=== PATIENT | male | born 1960 | race African-American/Black ===

== ENCOUNTER 2021-07-11 11:26 | Inpatient (IN) ==
[2021-07-11] MEDS ORDERED: AMIODARONE 450 MG/9 ML VIAL IV ONE (11:28)
[2021-07-11] MEDS ORDERED: AMIODARONE INJ 450 MG in DEXTROSE 5% 241 ML IV SCH (11:45)
[2021-07-11 12:11] LABS: Basophils % 0.6 % (0.0-0.8); Eosinophils # 0.1 10*3/uL (0.0-0.87); Eosinophils % 1.9 % (0.00-10.9); Hematocrit 42.2 VOL% (42.0-52.0); Hemoglobin 14.1 GM/DL (14.0-18.0); Immature Granulocytes % 0.6 %; Immature Granulocytes Absolute 0.04 #; Lymphocytes # 1.6 10*3/uL (1.4-4.0); Lymphocytes % 25.1 % (21.2-54.2); Mean Corpuscular HGB Conc 33.4 GM/DL (32-36); Mean Corpuscular Volume 85.8 FL (87-102); Mean Platelet Volume 9.5 FL (9.6-12.0); Monocytes % 7.1 % (1.7-12.7); Neutrophils % 64.7 % (38.7-73.9); Platelet Count 220 T/CUMM (130-400); Red Blood Count 4.92 MC/CUMM (3.8-5.5); Red Cell Distribution Width 12.8 % (9.3-17.3); White Blood Count 6.2 T/CUMM (4-12)
[2021-07-11 12:40] LABS: Albumin 3.3 G/DL (3.4-5.0); Bilirubin,Total 0.6 MG/DL (0.20-1.00); Calcium 9.1 MG/DL (8.5-10.1); Osmolality,Calculated 266.5 MOS/KG (273-304); Potassium 4.5 MMOL/L (3.5-5.1); Total Protein 7.1 G/DL (6.4-8.2)
[2021-07-11] MEDS ORDERED: ACETAMINOPHEN 325 MG TABLET PO PRN (12:51)
[2021-07-11] MEDS ORDERED: ALBUTEROL 2.5 MG/3 ML NEB RESP TX PRN (12:51)
[2021-07-11] MEDS ORDERED: DOCUSATE SODIUM 100 MG CAPSULE PO PRN (12:51)
[2021-07-11] MEDS ORDERED: ALUMINUM/MAGNES/SIMETH MAX STR 30 ML UDCUP PO PRN (12:51)
[2021-07-11] MEDS ORDERED: ONDANSETRON 4 MG/2 ML VIAL IV PRN (12:51)
[2021-07-11] MEDS ORDERED: MAGNESIUM SULF RIDER 4 GM/100 ML PREMIX IV PRN (13:24)
[2021-07-11] MEDS ORDERED: MAGNESIUM SULF RIDER 2 GM/50 ML PREMIX IV PRN (13:24)
[2021-07-11] MEDS ORDERED: NICOTINE 21 MG/24 HR PATCH TRANSDERM PRN (13:30)
[2021-07-11] MEDS ORDERED: INFLUENZA VIRUS VACCINE 0.5 ML SYRINGE IM ONE (13:41)
[2021-07-11 14:15] LABS: PT Patient Result 11.4 SECS (10.5-12.0)
[2021-07-11] MEDS: METOPROLOL SUCCINATE XL 25 MG TABLET PO SCH (15:35)
[2021-07-11] MEDS: CLOPIDOGREL 75 MG TABLET PO SCH (15:35)
[2021-07-11] MEDS: ENOXAPARIN 40 MG/0.4 ML SYRINGE SUBCUT SCH (15:37)
[2021-07-11] MEDS: INSULIN LISPRO 100 UNIT/ML SUBCUT SCH ×2 (15:37→20:43)
[2021-07-11] MEDS ORDERED: ZALEPLON 5 MG CAPSULE PO PRN (17:19)
[2021-07-11] MEDS: AMIODARONE INJ 450 MG in DEXTROSE 5% 241 ML IV SCH (19:16)
[2021-07-11] MEDS: SACUBITRIL/VALSARTAN 49-51 MG TABLET PO SCH (20:43)
[2021-07-12 04:20] LABS: Basophils # 0.1 10*3/uL (0.0-0.2); Basophils % 1.4 % (0.0-0.8); Eosinophils # 0.3 10*3/uL (0.0-0.87); Eosinophils % 4.8 % (0.00-10.9); Hematocrit 41.6 VOL% (42.0-52.0); Immature Granulocytes % 0.2 %; Immature Granulocytes Absolute 0.01 #; Lymphocytes # 2.1 10*3/uL (1.4-4.0); Lymphocytes % 40.5 % (21.2-54.2); Mean Corpuscular HGB Conc 33.7 GM/DL (32-36); Mean Corpuscular Volume 86.1 FL (87-102); Mean Platelet Volume 10.2 FL (9.6-12.0); Monocytes % 12.4 % (1.7-12.7); Neutrophils % 40.7 % (38.7-73.9); Platelet Count 223 T/CUMM (130-400); Red Blood Count 4.83 MC/CUMM (3.8-5.5); Red Cell Distribution Width 12.8 % (9.3-17.3); White Blood Count 5.2 T/CUMM (4-12)
[2021-07-12 04:45] LABS: Albumin 2.9 G/DL (3.4-5.0); Bilirubin,Total 1.1 MG/DL (0.20-1.00); Osmolality,Calculated 268.5 MOS/KG (273-304); Potassium 3.9 MMOL/L (3.5-5.1); Risk Ratio 4.57; Total Protein 6.8 G/DL (6.4-8.2)
[2021-07-12] MEDS: INSULIN LISPRO 100 UNIT/ML SUBCUT SCH ×4 (07:13→21:08)
[2021-07-12 07:25] LABS: Barbiturates Screen,Urine Negative (Negative); Benzodiazepines Screen,Urine Negative (Negative); Cannabinoid Screen,Urine Negative (Negative); Opiate Screen,Urine Negative (Negative); Phencyclidine Screen,Urine Negative (Negative)
[2021-07-12] MEDS: METOPROLOL SUCCINATE XL 25 MG TABLET PO SCH (08:13)
[2021-07-12] MEDS: INSULIN GLARGINE 100 UNIT/ML SUBCUT SCH (08:25)
[2021-07-12] MEDS: ATORVASTATIN 40 MG TABLET PO SCH (08:32)
[2021-07-12] MEDS: CLOPIDOGREL 75 MG TABLET PO SCH (08:32)
[2021-07-12] MEDS: SACUBITRIL/VALSARTAN 49-51 MG TABLET PO SCH ×2 (08:32→21:07)
[2021-07-12] MEDS: ASPIRIN EC 81 MG TABLET PO SCH (08:33)
[2021-07-12] MEDS: PANTOPRAZOLE 40 MG TABLET PO SCH (08:33)
[2021-07-12] MEDS ORDERED: POTASSIUM CHLORIDE RIDER 10 MEQ/100 ML PREMIX IV PRN (09:53)
[2021-07-12] MEDS ORDERED: MAGNESIUM SULF RIDER 2 GM/50 ML PREMIX IV PRN (09:53)
[2021-07-12] MEDS: AMIODARONE INJ 450 MG in DEXTROSE 5% 241 ML IV SCH (10:58)
[2021-07-12] MEDS ORDERED: DIAZEPAM 5 MG TABLET PO ONE (11:00)
[2021-07-12] MEDS ORDERED: diphenhydrAMINE CAP 50 MG CAPSULE PO ONE (11:00)
[2021-07-12] MEDS: ENOXAPARIN 40 MG/0.4 ML SYRINGE SUBCUT SCH (14:05)
[2021-07-12] MEDS ORDERED: LIDOCAINE 1% 20 ML VIAL ONE (15:07)
[2021-07-12] MEDS ORDERED: MIDAZOLAM 2 MG/2 ML VIAL ONE (15:07)
[2021-07-12] MEDS ORDERED: HYDROmorphone 2 MG/1 ML VIAL ONE (15:07)
[2021-07-12] MEDS: AMIODARONE 200 MG TABLET PO SCH (21:08)
[2021-07-13 05:41] LABS: Basophils # 0.1 10*3/uL (0.0-0.2); Eosinophils # 0.3 10*3/uL (0.0-0.87); Eosinophils % 5.4 % (0.00-10.9); Hematocrit 42.2 VOL% (42.0-52.0); Hemoglobin 14.3 GM/DL (14.0-18.0); Immature Granulocytes % 0.2 %; Immature Granulocytes Absolute 0.01 #; Lymphocytes % 38.6 % (21.2-54.2); Mean Corpuscular HGB Conc 33.9 GM/DL (32-36); Mean Corpuscular Volume 87.2 FL (87-102); Mean Platelet Volume 9.8 FL (9.6-12.0); Monocytes % 9.8 % (1.7-12.7); Platelet Count 212 T/CUMM (130-400); Red Blood Count 4.84 MC/CUMM (3.8-5.5); Red Cell Distribution Width 12.8 % (9.3-17.3); White Blood Count 5.2 T/CUMM (4-12)
[2021-07-13 06:29] LABS: Calcium 8.6 MG/DL (8.5-10.1); Osmolality,Calculated 270.5 MOS/KG (273-304); Potassium 4.2 MMOL/L (3.5-5.1)
[2021-07-13] MEDS: CLOPIDOGREL 75 MG TABLET PO SCH (08:59)
[2021-07-13] MEDS: ATORVASTATIN 40 MG TABLET PO SCH (08:59)
[2021-07-13] MEDS: PANTOPRAZOLE 40 MG TABLET PO SCH (08:59)
[2021-07-13] MEDS: ASPIRIN EC 81 MG TABLET PO SCH (08:59)
[2021-07-13] MEDS: AMIODARONE 200 MG TABLET PO SCH (09:00)
[2021-07-13] MEDS: INSULIN GLARGINE 100 UNIT/ML SUBCUT SCH (09:02)
[2021-07-13] MEDS: INSULIN LISPRO 100 UNIT/ML SUBCUT SCH ×2 (09:03→12:33)
[2021-07-13] MEDS: SACUBITRIL/VALSARTAN 49-51 MG TABLET PO SCH (09:04)
[2021-07-13 12:29] VITALS: BP 130/76
[2021-07-13] MEDS ORDERED: PNEUMOCOCCAL VACCINE (13 VALENT) 0.5 ML SYRINGE IM ONE (14:44)
[2021-07-14] MEDS ORDERED: INSULIN GLARGINE 100 UNIT/ML SUBCUT SCH (09:00)
== END 2021-07-13 15:13 | disposition home or self-care (01) | DRG 287 ==
LOC: N.EDINP 11:26 → N.ED 11:26 → SUATTDRO 12:51 → N.CC 12:56 → N.TELES 07-12 20:08
PROVIDERS: ADMIT Family Medicine; ATTEND Internal Medicine
PROC: CLCCHCL (ICD-10-PCS; 2021-07-12 16:15)